=== PATIENT | female | born 1995 | race Caucasian/White ===

== ENCOUNTER 2020-06-16 20:33 | Day surgery (SDC) | payer OTHER ==
[2020-06-16 21:11] VITALS: BMI 30.9
[2020-06-16] MEDS ORDERED: hydrALAZINE 20 MG/ML VIAL SLOW IVP PRN (21:32)
== END 2020-06-16 23:05 | disposition home or self-care (01) ==
LOC: CSHLD/OP 20:33
PROVIDERS: ATTEND Obstetrics & Gynecology
DX: O47.1 False labor at or after 37 completed weeks of gestation (principal); Z3A.37 37 weeks gestation of pregnancy
CPT/HCPCS: 99283

== ENCOUNTER 2020-06-17 11:41 | Outpatient (CLI) | payer OTHER ==
[2020-06-17 22:03] LABS: SARS-CoV-2 PCR by NAA Not Detected (NotDetected)
== END 2020-06-17 11:42 | disposition home or self-care (01) ==
LOC: CSHLAB 11:41
PROVIDERS: ATTEND Obstetrics & Gynecology
DX: Z20.822 Contact with and (suspected) exposure to COVID-19 (principal)
CPT/HCPCS: 87635; U0003; U0005

== ENCOUNTER 2020-06-21 18:47 | Inpatient (IN) | payer OTHER ==
[~2020-06-21 18:47] MED LIST: Bupivacaine 0.25% HCL 30 ML VIAL ONE
[2020-06-21 19:48] VITALS: BMI 30.2
[2020-06-21] MEDS: Lactated Ringer's 1,000 ML IV SCH (20:05)
[2020-06-21] MEDS ORDERED: Diphenoxylate HCl/Atropine Tablet PO PRN ×2 (20:09)
[2020-06-21] MEDS ORDERED: Carboprost 250 MCG/ML AMP IM PRN (20:09)
[2020-06-21] MEDS ORDERED: Promethazine HCl 25 MG/ML VIAL IM PRN (20:09)
[2020-06-21] MEDS ORDERED: Ibuprofen 800 MG TAB PO PRN (20:09)
[2020-06-21] MEDS ORDERED: hydrALAZINE 20 MG/ML VIAL SLOW IVP PRN (20:09)
[2020-06-21] MEDS ORDERED: Lidocaine 1% (PF) 30 ML VIAL SC PRN (20:09)
[2020-06-21] MEDS ORDERED: Docusate 100 MG CAP PO PRN (20:09)
[2020-06-21] MEDS ORDERED: Acetaminophen 500 MG TAB PO PRN (20:09)
[2020-06-21] MEDS ORDERED: Misoprostol 200 MCG TAB PR PRN (20:09)
[2020-06-21] MEDS ORDERED: HYDROcodone/Acetaminophen 5/325 mg Tablet PO PRN ×2 (20:09)
[2020-06-21] MEDS ORDERED: NS w/ Oxytocin 30 units 500 ML IV SCH ×2 (20:15)
[2020-06-21] MEDS ORDERED: NS w/ Oxytocin 30 units 500 ML IVPB SCH (20:15)
[2020-06-21] MEDS: Misoprostol 100 MCG TAB VAG SCH (20:40)
[2020-06-21 20:42] LABS: Hemoglobin 12.3 g/dL (12.0-15.5); Mean Corpuscular HGB CONC 35.3 g/dL (32.0-36.0); Mean Corpuscular Hemoglobin 31.7 pg (27.0-33.0); Mean Corpuscular Volume 89.7 fl (81.6-98.3); Mean Platelet Volume 11.6 fl (7.4-10.4); Platelet Count 178 10x3/uL (150-450); Red Blood Cell (RBC) Count 3.88 10x6/uL (3.90-5.03); White Blood Cell (WBC) Count 12.2 10x3/uL (3.5-10.5)
[2020-06-21 21:19] LABS: Hep B Surf Ag Non-Reactive S/CO (NonReactive); Syphilis Antibody Nonreactive (Nonreactive); Syphilis Antibody Index 0.03 S/CO (<1.00 Non-Reactive)
[2020-06-21 21:34] LABS: HBSAg Index 0.15 S/CO (0-0.99)
[2020-06-22] MEDS: Misoprostol 100 MCG TAB VAG SCH (00:14)
[2020-06-22] MEDS: Butorphanol Tartrate 1 MG/ML VIAL SLOW IVP PRN ×3 (02:43→09:49)
[2020-06-22] MEDS: Lactated Ringer's 1,000 ML IV SCH ×3 (04:20→17:49)
[2020-06-22] MEDS: Ondansetron PF 4 MG/2 ML Vial IVP PRN ×2 (06:12→13:57)
[2020-06-22] MEDS ORDERED: FENTANYL ONE (12:42)
[2020-06-22] MEDS ORDERED: BUP ONE (12:42)
[2020-06-22] MEDS ORDERED: Lactated Ringer's 500 ML IV PRN ×2 (13:52→13:53)
[2020-06-22] MEDS ORDERED: diphenhydrAMINE 50 MG/ML VIAL IVP PRN ×2 (13:52→13:53)
[2020-06-22] MEDS ORDERED: Ondansetron PF 4 MG/2 ML Vial IVP PRN ×3 (13:52→22:37)
[2020-06-22] MEDS ORDERED: ePHEDrine 50 MG/ML VIAL SLOW IVP PRN ×2 (13:52→13:53)
[2020-06-22] MEDS ORDERED: Eucerin (Mineral Oil/Petrolatum,White) 30 gm Jar TOP PRN ×2 (13:52→13:53)
[2020-06-22] MEDS ORDERED: Promethazine HCl 25 MG/ML VIAL IM PRN ×3 (13:52→22:37)
[2020-06-22] MEDS ORDERED: Naloxone HCl 0.4 mg/ml Vial IVP PRN ×4 (13:52→13:53)
[2020-06-22] MEDS ORDERED: Acetaminophen 325 MG TAB PO PRN ×2 (13:52→13:53)
[2020-06-22] MEDS ORDERED: Fentanyl 4 mcg/Bup 0.1667% 200 ML CADD EPIDURAL SCH (14:00)
[2020-06-22] MEDS ORDERED: Communication Order-Pharmacy FS SCH ×2 (14:00)
[2020-06-22] MEDS ORDERED: Fentanyl 4 mcg/Bupivacaine 0.1% Cassette 100 ML EPIDURAL SCH (20:45)
[2020-06-22] MEDS ORDERED: Benzocaine-Menthol 82.5 ML CAN TOP PRN (22:37)
[2020-06-22] MEDS ORDERED: Bisacodyl 10 MG SUPP PR PRN (22:37)
[2020-06-22] MEDS ORDERED: diphenhydrAMINE 25 MG CAP PO PRN (22:37)
[2020-06-22] MEDS ORDERED: Preparation H Ointment 28 GM TUBE PR PRN (22:37)
[2020-06-22] MEDS ORDERED: Milk Of Magnesia 30 ML UDCUP PO PRN (22:37)
[2020-06-22] MEDS ORDERED: Misoprostol 200 MCG TAB VAG PRN (22:37)
[2020-06-22] MEDS ORDERED: NS w/ Oxytocin 30 units 500 ML IV SCH (22:37)
[2020-06-22] MEDS ORDERED: hydrALAZINE 20 MG/ML VIAL SLOW IVP PRN (22:37)
[2020-06-23] MEDS: Lanolin Ointment 7 GM TUBE TOP PRN (01:51)
[2020-06-23] MEDS: Ibuprofen 800 MG TAB PO SCH ×4 (01:52→20:49)
[2020-06-23] MEDS ORDERED: HYDROcodone/Acetaminophen 5/325 mg Tablet PO PRN ×2 (02:13→02:14)
[2020-06-23] MEDS ORDERED: Zolpidem Tartrate 5 MG TAB PO PRN (02:14)
[2020-06-23 06:14] LABS: Hemoglobin 10.7 g/dL (12.0-15.5); Mean Corpuscular HGB CONC 34.9 g/dL (32.0-36.0); Mean Corpuscular Hemoglobin 31.8 pg (27.0-33.0); Mean Corpuscular Volume 91.1 fl (81.6-98.3); Mean Platelet Volume 11.7 fl (7.4-10.4); Platelet Count 155 10x3/uL (150-450); RBC Distribution Width 13.6 % (11.5-14.5); Red Blood Cell (RBC) Count 3.37 10x6/uL (3.90-5.03); White Blood Cell (WBC) Count 16.1 10x3/uL (3.5-10.5)
[2020-06-23] MEDS: Docusate Calcium (SURFAK) 240 MG CAP PO SCH ×2 (08:45→20:49)
[2020-06-23] MEDS: Ferrous Sulfate 325 MG TAB PO SCH ×2 (08:45→14:02)
[2020-06-23] MEDS: Prenatal Vitamin 1 TAB PO SCH (08:45)
[2020-06-23] MEDS ORDERED: Adacel (T-DAP) 0.5 ML SYRINGE IM ONE (09:00)
[2020-06-23] MEDS ORDERED: Measles/Mumps/Rubella 10 MCG/0.5 ML VIAL SC ONE (09:00)
[2020-06-23] MEDS ORDERED: Varicella virus, LIVE 0.5 ML VIAL SC ONE (09:00)
[2020-06-24] MEDS: Ibuprofen 800 MG TAB PO SCH ×2 (04:50→15:19)
[2020-06-24] MEDS: Lanolin Ointment 7 GM TUBE TOP PRN (04:51)
[2020-06-24 08:14] VITALS: BP 124/74; TEMP 97.6
[2020-06-24] MEDS: Ferrous Sulfate 325 MG TAB PO SCH (08:32)
[2020-06-24] MEDS: Prenatal Vitamin 1 TAB PO SCH (08:45)
[2020-06-24] MEDS: Docusate Calcium (SURFAK) 240 MG CAP PO SCH (08:45)
[2020-06-24] MEDS: Misoprostol 100 MCG TAB VAG SCH ×3 (09:28→09:30)
[2020-06-24] MEDS: Lactated Ringer's 1,000 ML IV SCH (09:30)
== END 2020-06-24 17:35 | disposition home or self-care (01) | DRG 807 ==
LOC: CSHLD 18:47 → CSHPP 06-23 01:00
PROVIDERS: ADMIT Obstetrics & Gynecology; ATTEND Obstetrics & Gynecology
PROC: 10E0XZZ Delivery of Products of Conception, External Approach (ICD-10-PCS; principal; 2020-06-22)
DX: O13.4 Gestational [pregnancy-induced] hypertension without significant proteinuria, complicating childbirth (principal); Z37.0 Single live birth; O70.0 First degree perineal laceration during delivery; Z3A.38 38 weeks gestation of pregnancy; Z20.822 Contact with and (suspected) exposure to COVID-19
CPT/HCPCS: 36415; 51702; 85027; 86780; 86850; 86900; 86901; 87340; J0595; J2405; J2550; J2590; S0020